=== PATIENT | female | born 1985 | race Caucasian/White ===

== ENCOUNTER → 2016-03-21 | Outpatient (CLI) | payer OTHER ==
[~2016-03-21] VITALS: Ht 162.6 cm; Wt 103.6 kg
[~2016-03-21] MED LIST: AZITHROMYCIN500 M1 PO; BREO ELLIPTA I1 EACH IH; BUPROPION XL150 MG PO; MOTRIN600 MG PO; VALACYCLOVIR500 MG PO; VENTOLIN HFA18 GM IH; VITAMIN D2000 UNIT PO; ZOFRAN ODT4 MG PO
[2016-03-21 08:00] VITALS: BP 125/85
== END | disposition home or self-care (01) ==
LOC: IVINF 03-15 07:30
PROVIDERS: Internal Medicine Endocrinology, Diabetes & Metabolism
DX: R42 Dizziness and giddiness (principal); R51 Headache
CPT/HCPCS: 80400; 82024 90; 82533 91; 96374; J0834

== ENCOUNTER 2016-09-22 10:10 | Emergency (ER) | payer OTHER ==
[~2016-09-22] VITALS: Ht 162.6 cm; Wt 65.0 kg
[2016-09-22 13:22] LABS: MCH 29.4 PG (29.0-34.0); MCHC 33.8 G/DL (30.0-36.0); MCV 86.9 FL (83-99); MEAN PLAT.VOLUME 9.8 uM^3 (9.5-12.4); PLATELET COUNT 331 K/uL (156-360); RBC DIS.WIDTH-CV 12.3 % (11.8-14.6); RBC DIS.WIDTH-SD 39.1 % (39-53); RED BLOOD COUNT 5.41 M/uL (3.80-5.20); WHITE BLOOD COUNT 6.9 K/uL (4.1-10.2)
[2016-09-22 14:01] LABS: TROP-I INTERPRETATION NEGATIVE; TROPONIN-I < 0.01 ng/mL (0.0-0.30)
[2016-09-22 14:19] LABS: QUANTITATIVE HCG < 4.0 MIU/ML
[2016-09-22 14:30] VITALS: BP 128/82
[2016-09-22 14:33] LABS: ANION GAP 15 MEQ/L (2-14); CHLORIDE 106 MEQ/L (99-109); POTASSIUM 3.8 MEQ/L (3.7-5.4); SAMPLE HEMOLYSIS CHECK 0; SAMPLE ICTERIC CHECK 0; SAMPLE LIPEMIA CHECK 0; SODIUM 142 MEQ/L (136-147)
[2016-09-22 14:38] LABS: GFR ESTIMATE (CALCULATED) > 59 mL/min/; GLUCOSE 86 mg/dL (70-99); UREA NITROGEN (BUN) 10 mg/dL (9-23)
== END 2016-09-22 14:33 | disposition home or self-care (01) ==
LOC: EME 10:10
DX: R07.89 Other chest pain (principal); R00.0 Tachycardia, unspecified; M79.602 Pain in left arm; M54.9 Dorsalgia, unspecified; R53.83 Other fatigue; Z86.718 Personal history of other venous thrombosis and embolism
CPT/HCPCS: 71020; 80048; 84484; 84702; 85027; 93005; 99281; 99284